=== PATIENT | male | born 1965 | race Caucasian/White ===

== ENCOUNTER 2018-04-07 20:31 | Emergency (ER) | payer OTHER ==
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
[2018-04-08 01:36] VITALS: BP 166/90; PULSE 81; RESP 16; TEMP 98
== END 2018-04-07 22:49 | disposition home or self-care (01) ==
LOC: EC 20:31
DX: Z04.1 Encounter for examination and observation following transport accident (principal); G47.30 Sleep apnea, unspecified; Z99.89 Dependence on other enabling machines and devices; Z53.29 Procedure and treatment not carried out because of patient's decision for other reasons; V68.5XXA Driver of heavy transport vehicle injured in noncollision transport accident in traffic accident, initial encounter; Y92.89 Other specified places as the place of occurrence of the external cause
CPT/HCPCS: 99284